=== PATIENT | male | born 1975 | race Caucasian/White ===

== ENCOUNTER 2016-10-10 19:55 | Emergency (ER) | payer MEDICAID, OTHER ==
[~2016-10-10] VITALS: Ht 182.9 cm; Wt 82.0 kg
[~2016-10-10 19:55] MED LIST: EMTR1TAB10 PO; LORA1TAB; LORA1TAB PO
[2016-10-10 20:06] VITALS: Ht 182.9 cm; Wt 82.0 kg
[2016-10-10] MEDS ORDERED: SOD CHLORIDE 0.9% 1,000 ML IV STA (20:07)
[2016-10-10 20:29] LABS: ADD SCAN DIFF NO
[2016-10-10 20:30] LABS: BASOPHILS % 0.2 % (0.0-2.0); EOSINOPHILS # 0.1 10^3/ul (0.0-0.5); EOSINOPHILS % 1.1 % (0.0-7.0); HEMOGLOBIN 14.1 g/dl (14.0-18.0); LYMPHOCYTES # 0.8 10^3/ul (0.8-2.9); LYMPHOCYTES % 6.5 % (15.0-51.0); MEAN CORPUSCULAR HEMOGLOBIN 30.5 pg (29.0-33.0); MEAN CORPUSCULAR HGB CONC 33.6 g/dl (32.0-37.0); MEAN CORPUSCULAR VOLUME 90.7 fl (82.0-101.0); MEAN PLATELET VOLUME 11.3 fl (7.4-10.4); MONOCYTE # 0.7 10^3/ul (0.3-0.9); MONOCYTES % 5.1 % (0.0-11.0); NEUTROPHIL # 11.1 10^3/ul (1.6-7.5); NEUTROPHILS % 86.5 % (39.0-77.0); PLATELET COUNT 267 10^3/UL (140-415); RED BLOOD COUNT 4.63 10^6/ul (4.70-6.10); RED CELL DISTRIBUTION WIDTH 13.3 % (11.5-14.5); WHITE BLOOD COUNT 12.9 10^3/ul (4.8-10.8)
--- NOTE | 2016-10-10 20:40 | ERD ---
ER Documentation Chief Complaint Date/Time DATE: 10/10/16 TIME: 20:38 Chief Complaint feeling dizzy after smoking methamphetamine HPI Patient is a 41-year-old male with HIV who presents feeling dizzy. He was brought in by ambulance. He said that he smoked methamphetamine last night. He feels shaky and felt like he would pass out. He felt dizzy as well so he called 911. Upon review of old medical records this is the patient's first visit to the emergency department. He does not remember the name of his primary doctor. ROS All systems reviewed and are negative except as per history of present illness. Allergies Allergies: Coded Allergies: No Known Drug Allergies (Verified Allergy, Unknown, 10/10/16) PMhx/Soc History of Surgery: Yes (nose) Anesthesia Reaction: No Hx Miscellaneous Medical Probl: Yes (HIV+) Hx Alcohol Use: Yes Hx Substance Use: Yes (meth) Smoking Status: Current some day smoker FmHx Family History: diabetes Physical Exam Vitals Vital Signs Date Time Temp Pulse Resp B/P Pulse Ox O2 Delivery O2 Flow Rate FiO2 10/10/16 20:06 98.1 107 20 94/50 98 Physical Exam Const: No acute distress Head: Atraumatic Eyes: Normal Conjunctiva ENT: Normal External Ears, Nose and Mouth. Neck: Full range of motion..~ No meningismus. Resp: Clear to auscultation bilaterally Cardio: Tachycardic rate without murmur Abd: Soft, non tender, non distended. Normal bowel sounds Skin: No petechiae or rashes Back: No midline or flank tenderness Ext: No cyanosis, or edema Neur: Awake and alert Psych: Normal Mood and Affect Result Diagram: 10/10/16 2018 Results 24 hrs Laboratory Tests Test 10/10/16 20:18 White Blood Count 12.910^3/ul Red Blood Count 4.6310^6/ul Hemoglobin 14.1g/dl Hematocrit 42.0% Mean Corpuscular Volume 90.7fl Mean Corpuscular Hemoglobin 30.5pg Mean Corpuscular Hemoglobin Concent 33.6g/dl Red Cell Distribution Width 13.3% Platelet Count 00582^3/UL Mean Platelet Volume 11.3fl Neutrophils % 86.5% Lymphocytes % 6.5% Monocytes % 5.1% Eosinophils % 1.1% Basophils % 0.2% Nucleated Red Blood Cells % 0.0/100WBC Neutrophils # 11.110^3/ul Lymphocytes # 0.810^3/ul Monocytes # 0.710^3/ul Eosinophils # 0.110^3/ul Basophils # 0.010^3/ul Nucleated Red Blood Cells # 0.010^3/ul Current Medications Medications (Trade) Dose Ordered Sig/Roseline Route PRN Reason Start Time Stop Time Status Last Admin Dose Admin Sodium Chloride (NS) 1,000 ml @ 1,000 mls/hr Q1H STAT IV 10/10/16 20:07 10/10/16 21:06 10/10/16 20:26 Procedures/MDM EKG read by me: Rate/Rhythm: Sinus tachycardia Intervals: Normal Impression: Sinus tachycardia without ischemia Patient is a 41-year-old male presents with dizziness and near syncope. He was found to be tachycardic and mildly hypotensive. I believe the patient is likely dehydrated I believe symptoms are related to methamphetamine abuse. The patient will be given 1 L of normal saline for fluid resuscitation. His white blood cell count is mildly elevated at 12.9 but I doubt serious bacterial infection at this time. Electrolytes are pending. If electrolytes are normal I believe outpatient management would be appropriate. The patient will need to follow-up with his primary doctor within 24-48 hours and can return if symptoms worsen. I doubt ventricular arrhythmia or sepsis. Departure Diagnosis: Primary Impression: Dizziness Additional Impression: Methamphetamine abuse Condition: Fair Patient Instructions: Understanding Methamphetamine Abuse and Addiction, Dizziness, Unk Cause Referrals: Your doctor XIMENA SALEH MD Oct 10, 2016 20:40
[2016-10-10 20:56] LABS: ANION GAP 16 (8-16); BLOOD UREA NITROGEN 20 mg/dl (7-20); CALCIUM 9.4 mg/dl (8.4-10.2); CARBON DIOXIDE 27 mmol/L (21-31); CHLORIDE 105 mmol/L (97-110); GLUCOSE 135 mg/dl (70-220); POTASSIUM 3.1 mmol/L (3.5-5.1); SODIUM 145 mmol/L (135-144)
[2016-10-10 20:57] LABS: ACETAMINOPHEN < 10.0 ug/ml (10.0-30.0); ALANINE AMINOTRANSFERASE 32 IU/L (13-69); ALBUMIN 4.9 g/dl (3.3-4.9); ALBUMIN/GLOBULIN RATIO 1.68; ALKALINE PHOSPHATASE 70 IU/L (42-121); ASPARTATE AMINO TRANSFERASE 18 IU/L (15-46); BILIRUBIN,INDIRECT 0.8 mg/dl (0-1.1); BILIRUBIN,TOTAL 0.8 mg/dl (0.2-1.3); ETHANOL < 10.0 mg/dl; SALICYLATE < 1.0 mg/dl (5.0-30.0); TOTAL PROTEIN 7.8 g/dl (6.1-8.1)
[2016-10-10 21:04] LABS: ADD UMIC YES; URINE BILIRUBIN (Dip) 1+ (NEGATIVE); URINE BLOOD (Dip) TRACE (NEGATIVE); URINE COLOR YELLOW (YELLOW); URINE GLUCOSE (Dip) NEGATIVE (NEGATIVE); URINE KETONES (Dip) TRACE (NEGATIVE); URINE LEUKOCYTE ESTERASE (Dip) NEGATIVE (NEGATIVE); URINE NITRITE (Dip) NEGATIVE (NEGATIVE); URINE TOTAL PROTEIN (Dip) 2+ (NEGATIVE); URINE UROBILINOGEN (Dip) 1.0 E.U./dL (0.1-1.0)
[2016-10-10 21:32] LABS: BARBITURATES NEGATIVE (NEGATIVE); BENZODIAZEPINES NEGATIVE (NEGATIVE); CANNABINOIDS NEGATIVE (NEGATIVE); COCAINE NEGATIVE (NEGATIVE); OPIATES NEGATIVE (NEGATIVE)
[2016-10-10 21:36] LABS: ICTOTEST NEGATIVE (NEGATIVE); URINE RBCS 0-2 /HPF (0)
[2016-10-10 21:37] LABS: BACTERIA,URINE FEW; MUCUS,URINE MANY
[2016-10-10] MEDS ORDERED: POTASSIUM CHLORIDE (SR) 20 MEQ TAB PO STA (21:38)
[2016-10-10 22:17] VITALS: BP 109/74; PULSE 105; RESP 16
== END 2016-10-10 22:44 | disposition home or self-care (01) ==
LOC: MERGE 19:55 → E/R 19:55
DX: R42 Dizziness and giddiness (principal); R40.2252 Coma scale, best verbal response, oriented, at arrival to emergency department; F15.10 Other stimulant abuse, uncomplicated; F17.210 Nicotine dependence, cigarettes, uncomplicated; R40.2142 Coma scale, eyes open, spontaneous, at arrival to emergency department; R40.2362 Coma scale, best motor response, obeys commands, at arrival to emergency department
CPT/HCPCS: 36415; 80053; 80306; 80307; 81001; 85025; 93005; J7030; Z7502; Z7610